=== PATIENT | male | born 1960 | race Caucasian/White ===

== ENCOUNTER 2018-09-10 16:25 | Emergency (ER) | payer OTHER ==
[2018-09-10] MEDS ORDERED: Ketorolac 30 MG/ML SDV IM ONE (18:10)
[2018-09-10] MEDS ORDERED: Orphenadrine 100 MG Tab.ER PO ONE (18:10)
--- NOTE | 2018-09-10 19:21 | EDM.PDOC ---
ED HPI GENERAL MEDICAL PROBLEM - General Chief Complaint: Trauma Stated Complaint: RIB INJURY Time Seen by Provider: 09/10/18 17:00 Source of Information: Reports: Patient, RN Notes Reviewed History Limitations: Reports: No Limitations - History of Present Illness INITIAL COMMENTS - FREE TEXT/NARRATIVE: Patient is a 58 year old male who presents to the ED today for the evaluation a headache and left rib pain after a fall at work. The patient was working the overnight shift night, when he was walking down the stairs, and he slipped on the snow, which resulted in his helmet coming off and him hitting the back of his head and his posterior left chest on the stairs. This was a witnessed fall, and he did have loss of conciousness. He states this happened last night around 1am. He has been taking naproxen and tylenol for the headache , and is having muscle spasms in his ribs. He would rate his rib pain at a 9/ 10. He denies shortness of breath, but admits to pain with movement. He also denies any blurred/double vision. Bilateral Upper Chest Pain Score (Numeric/FACES): 9 - Related Data Allergies Allergy/AdvReac Type Severity Reaction Status Date / Time No Known Allergies Allergy Verified 09/10/18 16:48 Home Meds: Home Meds Hydrocodone/Acetaminophen [Burlington 5-325 Tablet] 1 each PO Q6HR PRN #12 tablet [Rx] Orphenadrine [Norflex] 100 mg PO BID PRN #28 tab 09/10/18 [Rx] Past Medical History Cardiovascular History: Reports: High Cholesterol Gastrointestinal History: Reports: Other (See Below) Other Gastrointestinal History: appendectomy 1972 Musculoskeletal History: Reports: Other (See Below) Other Musculoskeletal History: r hand surgery 1984 Social & Family History - Tobacco Use Smoking Status *Q: Current Every Day Smoker Years of Tobacco use: 40 Packs/Tins Daily: 1 - Caffeine Use Caffeine Use: Reports: Coffee - Recreational Drug Use Recreational Drug Use: No Review of Systems - Review of Systems Review Of Systems: See Below Constitutional: Reports: No Symptoms Eyes: Denies: Blurred Vision, Photophobia, Vision Change Ears: Reports: No Symptoms Nose: Reports: No Symptoms Mouth/Throat: Reports: No Symptoms Respiratory: Reports: Other (posterior left rib pain) Cardiovascular: Reports: No Symptoms GI/Abdominal: Reports: No Symptoms Genitourinary: Reports: No Symptoms Musculoskeletal: Reports: No Symptoms Skin: Reports: No Symptoms Neurological: Reports: No Symptoms Psychiatric: Reports: No Symptoms ED EXAM, GENERAL - Physical Exam Exam: See Below Exam Limited By: No Limitations General Appearance: Alert, WD/WN, No Apparent Distress Eye Exam: Bilateral Eye: EOMI, Normal Inspection, PERRL Ears: Normal External Exam, Normal TMs Nose: Normal Inspection Throat/Mouth: Normal Inspection, Normal Oropharynx Head: Atraumatic, Normocephalic Neck: Normal Inspection, Supple, Non-Tender, Full Range of Motion Respiratory/Chest: No Respiratory Distress, Lungs Clear, Normal Breath Sounds, No Accessory Muscle Use, Chest Non-Tender Cardiovascular: Normal Peripheral Pulses, Regular Rate, Rhythm, No Murmur GI/Abdominal: Normal Bowel Sounds, Soft, Non-Tender, No Distention Back Exam: Normal Inspection, Full Range of Motion Extremities: Normal Inspection, Normal Capillary Refill Neurological: Alert, Oriented, Normal Cognition, Normal Reflexes, No Motor/ Sensory Deficits Psychiatric: Normal Affect, Normal Mood Skin Exam: Warm, Dry, Intact, Normal Color, No Rash Course - Vital Signs Last Recorded V/S: Last Vital Signs Temp 97.1 F 09/10/18 16:42 Pulse 71 09/10/18 16:42 Resp 20 09/10/18 16:42 BP 155/77 H 09/10/18 16:42 Pulse Ox 100 09/10/18 16:42 - Orders/Labs/Meds Orders: Active Orders 24 hr Category Date Time Status Head wo Cont [CT] Stat Exams 09/10/18 16:59 Taken Ribs 2V w Chest Lt [CR] Stat Exams 09/10/18 17:00 Taken Meds: Medications Discontinued Medications Generic Name Dose Route Start Last Admin Trade Name Freq PRN Reason Stop Dose Admin Ketorolac Tromethamine 30 mg 09/10/18 18:10 09/10/18 18:30 Toradol IM 09/10/18 18:11 30 mg ONETIME ONE Administration Orphenadrine Citrate 100 mg 09/10/18 18:10 09/10/18 18:31 Norflex PO 09/10/18 18:11 100 mg ONETIME ONE Administration - Re-Assessments/Exams Free Text/Narrative Re-Assessment/Exam: 09/10/18 17:00 Pt presents to the ED for the evaluation of a headache and left rib pain as a result from a fall at work. Due to LOC, will order head CT and also left rib films to evaluate for possible rib fracture. 09/10/18 18:00 Pt will be given 100mg norflex for muscle spasms and 30 mg IM toradol for pain relief. Dr. Schwab was able to go see the patient as well. 09/10/18 19:00 Pt re assessed at bedside, he states that the pain is better but hurts when he moves certain ways. I have applied Omar wraps to his chest to provide a rib binder of sorts. Will provide him with Burlington 5-325 tablets for over the weekend and muscle relaxers for muscle spasms. His head CT did not demonstrate any acute abnormalities, I did review his rib x-rays with Dr. Schwab and he felt that there may be a hairline crack on one of his ribs. Pt will be discharged home. Departure - Departure Time of Disposition: 19:16 Disposition: Home, Self-Care 01 Condition: Fair Clinical Impression: Rib pain on left side Headache Qualifiers: Headache type: unspecified Headache chronicity pattern: acute headache Intractability: not intractable Qualified Code(s): R51 - Headache - Discharge Information *PRESCRIPTION DRUG MONITORING PROGRAM REVIEWED*: No *COPY OF PRESCRIPTION DRUG MONITORING REPORT IN PATIENT KELVIN: No Prescriptions: Hydrocodone/Acetaminophen [[place]lington 5-325 Tablet] 1 each PO Q6HR PRN #12 tablet PRN Reason: Pain Orphenadrine [Norflex] 100 mg PO BID PRN #28 tab PRN Reason: Spasms Instructions: Chest Wall Pain, [id number] Referrals: PCP,None [Primary Care Provider] - Forms: ED Department Discharge, ED Return to Work/School Form Additional Instructions: You have been evaluated in the ED for your rib pain and headache. It is likely that you have a hairline fracture of one of your ribs on your left side. Please take the norco tablets this weekend 1 tab every 6 hours as needed for pain relief. Please take the norflex twice daily for muscle spasms. During the work week you may take 600mg ibuprofen and/or 500 mg tylenol in an alternating fashion every 6 hours as needed for pain. Please return to ED if your symptoms should change or worsen. - My Orders Last 24 Hours: My Active Orders 09/10/18 16:59 Head wo Cont [CT] Stat 09/10/18 17:00 Ribs 2V w Chest Lt [CR] Stat - Assessment/Plan Last 24 Hours: My Active Orders 09/10/18 16:59 Head wo Cont [CT] Stat 09/10/18 17:00 Ribs 2V w Chest Lt [CR] Stat
--- NOTE | 2018-09-11 15:30 | CT ---
Head CT Technique: Multiple axial sections through the brain were obtained. Intravenous contrast was not utilized. Comparison: No prior intracranial imaging. Findings: Ventricles along with basal cisterns and sulci over the convexities are within normal limits for the patient's age. Small low density finding is noted within the left basal ganglia either due to prominent perivascular space or old lacunar infarct. No other abnormal parenchymal densities are seen. No evidence of intracranial hemorrhage. No midline shift or mass effect is seen. Bone window settings were reviewed which show no acute calvarial abnormality. Visualized sinuses are clear. Impression: 1. Small finding within the left basal ganglia believed to be incidental with differential as noted above. 2. No acute intracranial abnormality is seen. Diagnostic code #2 I agree with preliminary report from [facility], finalized on 09/10/18, 6:57 PM Central Time
--- NOTE | 2018-09-11 15:30 | CR ---
Chest and left ribs: Frontal view of the chest was obtained as well as three views of the left ribs. Comparison: No previous study. Heart size is within normal limits. Slight linear densities within the left and right lung base are seen most likely due to minimal scarring. Old healed left lower rib fractures are noted. No definite acute fracture is appreciated. Impression: 1. Slight scarring within both lung bases, worse on the left side. 2. Old healed left lower rib fractures are seen. No acute rib fracture is identified. Nondisplaced acute fracture could be missed. Diagnostic code #3
== END 2018-09-10 19:37 | disposition home or self-care (01) ==
LOC: JD.ED 16:25
DX: R07.81 Pleurodynia (principal); R51 Headache; E78.00 Pure hypercholesterolemia, unspecified; F17.210 Nicotine dependence, cigarettes, uncomplicated; W10.9XXA Fall (on) (from) unspecified stairs and steps, initial encounter; Y99.0 Civilian activity done for income or pay
CPT/HCPCS: 70450; 71101; 96372; 99284; A9270; J1885; 99283